=== PATIENT | female | born 1950 | race Caucasian/White ===

== ENCOUNTER 2022-05-06 08:10 | Emergency (ER) | payer MEDICARE, OTHER ==
[~2022-05-06] VITALS: Ht 165.1 cm; Wt 81.6 kg
--- NOTE | 2022-05-06 08:24 | NUR ---
[facility] to ER, the patient c/o on and of CP x 1 week with high blood pressure She called her PCP - advised her to keep taking her BP meds
--- NOTE | 2022-05-06 08:24 | NUR ---
established iv line 20 g right ac
--- NOTE | 2022-05-06 08:25 | NUR ---
blood sample obtained sent to lab
--- NOTE | 2022-05-06 08:25 | NUR ---
the patient was given Nitro SL; felt better- 0/10 on exam
--- NOTE | 2022-05-06 08:54 | NUR ---
field technician at bedside.
[2022-05-06 08:55] LABS: BASOPHILS % (AUTO) 0.6 % (0.0-2.0); EOSINOPHILS % (AUTO) 4.3 % (0.0-6.0); HEMATOCRIT 46 % (33-45); HEMOGLOBIN 15.3 g/dL (11.5-14.8); LYMPHOCYTES # (AUTO) 3.5 K/uL (0.8-4.8); LYMPHOCYTES % (AUTO) 47.9 % (20.0-44.0); MEAN CORPUSCULAR HGB CONC 33 g/dl (31.0-36.0); MEAN CORPUSCULAR VOLUME 87 fL (82-100); MONOCYTES # (AUTO) 0.3 K/uL (0.1-1.30); MONOCYTES % (AUTO) 4.6 % (2.0-12.0); NEUTROPHILS # (AUTO) 3.2 K/uL (1.8-8.9); NEUTROPHILS % (AUTO) 42.6 % (43.0-81.0); PLATELET COUNT (AUTO) 245 K/uL (150-450); RED BLOOD CELL COUNT(AUTO) 5.32 MIL/uL (4.0-5.2); WHITE BLOOD COUNT (AUTO) 7.4 K/uL (4.3-11.0)
--- NOTE | 2022-05-06 09:04 | NUR ---
Urine sample collected and sent to lab.
[2022-05-06 09:17] LABS: ALANINE AMINOTRANSFERASE 62 U/L (12-78); ALBUMIN 3.6 g/dL (3.4-5.0); ALKALINE PHOSPHATASE 92 U/L (46-116); ASPARTATE AMINOTRANSFERASE 41 U/L (15-37); BILIRUBIN,DIRECT 0.1 mg/dL (0.0-0.2); BILIRUBIN,TOTAL 0.3 mg/dL (0.2-1.0); CALCIUM, SERUM 9.8 mg/dL (8.5-10.1); CARBON DIOXIDE 29 mmol/L (21-32); CHLORIDE 101 mmol/L (98-107); CREATININE 1.1 mg/dL (0.6-1.3); GLUCOSE 91 mg/dL (74-106); POTASSIUM 3.6 mmol/L (3.5-5.1); SODIUM SERUM 139 mmol/L (136-145); TOTAL PROTEIN, SERUM 9.2 g/dL (6.4-8.2); UREA NITROGEN, BLOOD 20 mg/dL (7-18)
[2022-05-06] MEDS ORDERED: AMLO-62 PO (09:34)
[2022-05-06] MEDS ORDERED: HYDR25TA4 PO (09:34)
[2022-05-06] MEDS ORDERED: GLIP1TAB6 PO (09:34)
[2022-05-06] MEDS ORDERED: DONE5TAB34 PO (09:34)
[2022-05-06] MEDS ORDERED: BISO10TA PO (09:34)
[2022-05-06] MEDS ORDERED: MECL-173 PO (09:34)
[2022-05-06] MEDS ORDERED: DULA1.5P SQ (09:34)
[2022-05-06] MEDS ORDERED: SITA100T PO (09:34)
[2022-05-06] MEDS ORDERED: ALPR0.5T8 PO (09:34)
[2022-05-06] MEDS ORDERED: ERGO500093 PO (09:34)
[2022-05-06] MEDS ORDERED: PRAM0.129 PO (09:34)
[2022-05-06] MEDS ORDERED: ASPI-1420 PO (09:34)
[2022-05-06] MEDS ORDERED: ROSU20TA32 PO (09:34)
[2022-05-06] MEDS ORDERED: INSU3INS8 SQ (09:34)
[2022-05-06] MEDS ORDERED: CLON0.1T PO (09:34)
[2022-05-06] MEDS ORDERED: EVOL140P3 SQ (09:34)
[2022-05-06] MEDS ORDERED: DEXL60CA3 PO (09:34)
--- NOTE | 2022-05-06 10:37 | NUR ---
IV removed. Catheter intact and site benign. Pressure and 4x4 applied to site. No bleeding noted.
[2022-05-06 10:38] VITALS: BP 154/85
--- NOTE | 2022-05-06 10:38 | NUR ---
Patient discharged to home in stable condition. Written and verbal after care instructions given. Patient's daughter verbalizes understanding of instruction.
== END 2022-05-06 10:39 | disposition home or self-care (01) ==
LOC: ER 08:15
DX: I10 Essential (primary) hypertension (principal); E11.9 Type 2 diabetes mellitus without complications; Z60.2 Problems related to living alone; Z79.82 Long term (current) use of aspirin; Z79.4 Long term (current) use of insulin; Z79.899 Other long term (current) drug therapy
CPT/HCPCS: 36415; 71045-TC; 80048-TC; 80076-TC; 82962-TC; 84484-TC; 85025-TC

== ENCOUNTER 2022-09-02 07:52 | Emergency (ER) | payer MEDICARE, OTHER ==
[~2022-09-02] VITALS: Ht 162.6 cm; Wt 81.2 kg
[~2022-09-02 07:52] MED LIST: ALPR0.5T8 PO; AMLO-62 PO; ASPI-1420 PO; BISO10TA PO; CLON0.1T PO; DEXL60CA3 PO; DONE5TAB34 PO; DULA1.5P SQ; ERGO500093 PO; EVOL140P3 SQ; GLIP1TAB6 PO; HYDR25TA4 PO; INSU3INS8 SQ; MECL-173 PO; PRAM0.129 PO; ROSU20TA32 PO; SITA100T PO
[2022-09-02] MEDS ORDERED: diphenhydrAMINE HCL 50 MG/ML VIAL IV ONE (08:00)
[2022-09-02] MEDS ORDERED: methylPREDNISolone SOD SUCC 125 MG/2ML VIAL IV ONE (08:00)
[2022-09-02] MEDS ORDERED: FAMOTIDINE/PF INJ 40 MG in IV D5W 250 ML IV ONE (08:00)
[2022-09-02] MEDS ORDERED: EPINEPHRINE (1:1000) MDV 30 MG/30ML VIAL SUBCUT ONE (08:00)
--- NOTE | 2022-09-02 08:03 | NUR ---
[id number] FROM HOME FOR "TONGUE SWELLING THIS MORNING". PT DENIES SOB. PT STATES "IT MIGHT BE THE KEOPECTATE THAT I TOOK LAST NIGHT". THE PATIENT IS ALERT AND ORIENTED X4. IN ROOM AIR AND DENIES SOB. RESPIRATION REGULAR AND UNLABORED. DENIES PAIN. WILL CONTINUE TO MONITOR THE PATIENT.
[2022-09-02] MEDS ORDERED: EPINEPHRINE (1:1000) 1 MG/ML AMPUL ONE (08:06)
[2022-09-02] MEDS ORDERED: methylPREDNISolone SOD SUCC 125 MG/2ML VIAL ONE (08:06)
[2022-09-02] MEDS ORDERED: diphenhydrAMINE HCL 50 MG/ML VIAL ONE (08:06)
[2022-09-02] MEDS ORDERED: FAMOTIDINE/PF INJ 20 MG/2 ML VIAL IV ONE ×2 (08:08→08:16)
--- NOTE | 2022-09-02 09:20 | NUR ---
FAMOTIDINE 40 MG IN IV D5W 250ML STARTED AT 0845 STOP TIME 0915
[2022-09-02] MEDS ORDERED: PRED50TA PO (09:51)
[2022-09-02] MEDS ORDERED: DIPH50CA4 PO (09:51)
[2022-09-02] MEDS ORDERED: FAMO-131 PO (09:51)
--- NOTE | 2022-09-02 10:11 | NUR ---
Patient discharged to home in stable condition. Written and verbal after care instructions given. Patient verbalizes understanding of instruction. The patient is picked up by a family member.
[2022-09-02 10:12] VITALS: BP 150/75
== END 2022-09-02 10:12 | disposition home or self-care (01) ==
LOC: ER 07:56
DX: K14.0 Glossitis (principal); T47.6X5A Adverse effect of antidiarrheal drugs, initial encounter; I10 Essential (primary) hypertension; E11.9 Type 2 diabetes mellitus without complications; Z88.0 Allergy status to penicillin; Z79.899 Other long term (current) drug therapy; Y92.89 Other specified places as the place of occurrence of the external cause
CPT/HCPCS: 99284; 96365; 96375; 96372; J1200; J0171 ×2; J3490; J2930